=== PATIENT | male | born 1990 | race Caucasian/White ===

== ENCOUNTER → 2016-11-16 | Outpatient (CLI) | payer MEDICAID | LOC: FIMAGING 12:30 | PROVIDERS: ATTEND Internal Medicine Gastroenterology | DX: R91.1 Solitary pulmonary nodule (principal); R91.8 Other nonspecific abnormal finding of lung field; R06.00 Dyspnea, unspecified; F17.210 Nicotine dependence, cigarettes, uncomplicated ==

== ENCOUNTER 2017-01-04 11:08 | Day surgery (SDC) | payer MEDICAID ==
[2017-01-04] MEDS ORDERED: LIDOCAINE 1% 2 ML INJ ID PRN (11:17)
[2017-01-04] MEDS ORDERED: NS 500 ML IV SCH (11:30)
[2017-01-04 11:38] VITALS: TEMP 98.1
[2017-01-04] MEDS ORDERED: MIDAZOLAM 2 MG/2 ML VIAL ONE (11:41)
[2017-01-04] MEDS ORDERED: fentaNYL 100 MCG/2 ML INJ ONE (11:42)
--- NOTE | 2017-01-04 12:44 | PDGENHP ---
History & Physical Chief Complaint: BRBPR History of Present Illness: BRBPR Pertinent Past, Social, Family History: no cc in family. + tobacco. no alcohol Relevant Physical Exam: cta, s1s2, rrr. +bs, SOFT Cardiorespiratory Assessment: s1s2, rrr. CTA
--- NOTE | 2017-01-04 12:58 | POSTOPPROG ---
Post Op Note Date of Operation: 01/04/17 Surgeon: Ray Berrios Anesthesia: IV Sedation (versed 6mg and fentanyl 100 mcg IV) Pre-op Diagnosis: brbpr Post-op Diagnosis: hemorrhoids, o/w normla flex-sig Indication: BRBPR Procedure: flex-sig Findings: hemorrhoids Inf/Abcess present in the surg proc area at time of surgery?: No EBL: none Total fluids administered: 250 ml Complications: none
[2017-01-04 13:08] VITALS: BP 95/50; PULSE 58; RESP 12; O2SAT 98
== END 2017-01-04 13:53 | disposition home or self-care (01) ==
LOC: FSGY 11:08
PROVIDERS: ATTEND Internal Medicine Gastroenterology
PROC: 0DJD8ZZ Inspection of Lower Intestinal Tract, Via Natural or Artificial Opening Endoscopic (ICD-10-PCS; principal; 2017-01-04 12:00)
DX: K64.9 Unspecified hemorrhoids (principal); K62.5 Hemorrhage of anus and rectum; R91.1 Solitary pulmonary nodule; F17.200 Nicotine dependence, unspecified, uncomplicated
CPT/HCPCS: J2250; J3010